=== PATIENT | female | born 1990 | race Caucasian/White ===

== ENCOUNTER 2018-06-17 10:27 | Inpatient (IN) | payer OTHER ==
[2018-06-17 11:05] VITALS: BMI 25.2
[2018-06-17] MEDS ORDERED: Bupivacaine 0.25% HCL 30 ML VIAL ONE (11:11)
[2018-06-17] MEDS ORDERED: Sodium Chloride 0.9% (PF) 10 ML VIAL ONE (11:11)
[2018-06-17 11:42] LABS: Amnisure Internal Control QC ACCEPTABLE (ACCEPTABLE); Amnisure Test RUPTURE DETECTED (No Rupture)
[2018-06-17] MEDS: Lactated Ringer's 1,000 ML IV SCH ×2 (12:02→16:22)
[2018-06-17] MEDS ORDERED: NS / Oxytocin 40 units/1000ml 1,000 ML IV PRN (12:18)
[2018-06-17] MEDS ORDERED: Lidocaine 1% (PF) 30 ML VIAL SC PRN (12:18)
[2018-06-17] MEDS ORDERED: Ondansetron PF 4 MG/2 ML Vial IVP PRN ×3 (12:18→22:58)
[2018-06-17] MEDS ORDERED: Ibuprofen 800 MG TAB PO PRN (12:18)
[2018-06-17] MEDS ORDERED: Fentanyl 4 mcg/Bup 0.1% Cadd 100 ML ONE (12:22)
[2018-06-17] MEDS ORDERED: Lactated Ringer's 1,000 ML IV SCH (12:30)
[2018-06-17] MEDS ORDERED: NS w/ Oxytocin 10 units 500 ML IV SCH (12:30)
[2018-06-17 12:46] LABS: Hemoglobin 10.3 g/dL (12.0-16.0); Mean Corpuscular HGB CONC 34.2 g/dL (32.0-36.0); Mean Corpuscular Hemoglobin 28.2 pg (27.0-31.0); Mean Corpuscular Volume 82.4 fL (78.0-98.0); Mean Platelet Volume 6.9 fL (7.4-10.4); Platelet Count 341 thou/uL (130-400); RBC Distribution Width 11.9 % (11.5-14.5); Red Blood Cell (RBC) Count 3.65 mill/uL (4.20-5.40); White Blood Cell (WBC) Count 8.1 thou/uL (4.8-10.8)
[2018-06-17 13:24] LABS: Syphilis Antibody Nonreactive (Nonreactive); Syphilis Antibody Index 0.15 S/CO (<1.00 Non-Reactive)
[2018-06-17 13:27] LABS: HBSAg Index 0.23 S/CO (0-0.99); Hep B Surf Ag Non-Reactive S/CO (NonReactive)
[2018-06-17] MEDS ORDERED: Acetaminophen 325 MG TAB PO PRN (14:54)
[2018-06-17] MEDS ORDERED: Promethazine HCl 25 MG/ML VIAL IM PRN ×2 (14:54→22:58)
[2018-06-17] MEDS ORDERED: Eucerin (Mineral Oil/Petrolatum,White) 30 gm Jar TOP PRN (14:54)
[2018-06-17] MEDS ORDERED: ePHEDrine/0.9% NaCl/PF SYRINGE 50 mg/10 ml SLOW IVP PRN (14:54)
[2018-06-17] MEDS ORDERED: Naloxone HCl 0.4 mg/ml Vial IVP PRN ×2 (14:54)
[2018-06-17] MEDS ORDERED: Lactated Ringer's 500 ML IV PRN (14:54)
[2018-06-17] MEDS ORDERED: diphenhydrAMINE 50 MG/ML VIAL IVP PRN (14:54)
[2018-06-17] MEDS ORDERED: Fentanyl 4 mcg/Bupivacaine 0.1% Cassette 100 ML EPIDURAL SCH (15:00)
[2018-06-17] MEDS ORDERED: Communication Order-Pharmacy FS SCH (15:00)
--- NOTE | 2018-06-17 20:52 | PDOC.LDHP ---
Labor and Delivery H&P HPI: 27 year old with MFM followed for hx of thrombotic stroke prior to , on ASA 81 mg until earlier this weel. BARNEY nopted to be elevated by MFM team, up to 33cm+ this week in office. Current gestational age (weeks): 38 (38w and 6d) Grav: 2 Para: 1 Current complications: other (Severe Polyhydramniose) Abnormal US findings: Yes Current medications: pre- vitamins Allergies/Adverse Reactions: Allergies Allergy/AdvReac Type Severity Reaction Status Date / Time sulfamethoxazole Allergy Verified 06/17/18 11:00 [From Bactrim] tramadol Allergy Verified 06/17/18 11:00 trimethoprim [From Bactrim] Allergy Verified 06/17/18 11:00 Social history: none - Physical Exam Vital signs reviewed and normal: yes General: NAD, resting, breathing through contractions Heart: RRR Lungs: CTAB Abdomen: NTTP Extremeties: no edema FHT: category 1 - Vaginal Exam cm dilated: 7 Effacement: 75% Station: -1 - Assessment L&D Assessment: term rupture in membranes - Plan Plan: admit to L&D, labor augmentation if indicated
[2018-06-17] MEDS ORDERED: Benzocaine/Menthol 20-0.5% 60 ML CAN TOP PRN (22:58)
[2018-06-17] MEDS ORDERED: Lanolin Ointment 7 GM TUBE TOP PRN (22:58)
[2018-06-17] MEDS ORDERED: Bisacodyl 10 MG SUPP PR PRN (22:58)
[2018-06-17] MEDS ORDERED: NS / Oxytocin 40 units/1000ml 1,000 ML IV SCH (22:58)
[2018-06-17] MEDS ORDERED: HYDROcodone/Acetaminophen 5/325 mg Tablet PO PRN ×2 (22:58)
[2018-06-17] MEDS ORDERED: Measles/Mumps/Rubella 10 MCG/0.5 ML VIAL SC ONE (22:58)
[2018-06-17] MEDS ORDERED: Milk Of Magnesia 30 ML UDCUP PO PRN (22:58)
[2018-06-17] MEDS ORDERED: Varicella virus, LIVE 0.5 ML VIAL SC ONE (22:58)
[2018-06-17] MEDS ORDERED: Misoprostol 200 MCG TAB VAG PRN (22:58)
[2018-06-17] MEDS ORDERED: diphenhydrAMINE 25 MG CAP PO PRN (22:58)
[2018-06-17] MEDS ORDERED: Zolpidem Tartrate 5 MG TAB PO PRN (22:58)
[2018-06-17] MEDS ORDERED: Adacel (T-DAP) 0.5 ML VIAL IM ONE (22:58)
[2018-06-17] MEDS: Ibuprofen 800 MG TAB PO SCH (23:31)
[2018-06-18] MEDS: Ibuprofen 800 MG TAB PO SCH ×3 (06:23→21:34)
[2018-06-18 07:08] LABS: Hemoglobin 10.6 g/dL (12.0-16.0); Mean Corpuscular HGB CONC 33.9 g/dL (32.0-36.0); Mean Corpuscular Hemoglobin 28.5 pg (27.0-31.0); Mean Corpuscular Volume 84.1 fL (78.0-98.0); Platelet Count 284 thou/uL (130-400); RBC Distribution Width 11.7 % (11.5-14.5); Red Blood Cell (RBC) Count 3.71 mill/uL (4.20-5.40); White Blood Cell (WBC) Count 11.2 thou/uL (4.8-10.8)
[2018-06-18] MEDS: Prenatal Vitamin 1 TAB PO SCH (09:04)
[2018-06-18] MEDS: Docusate Calcium (SURFAK) 240 MG CAP PO SCH ×2 (09:04→21:34)
[2018-06-18] MEDS: Ferrous Sulfate 325 MG TAB PO SCH ×2 (09:04→18:19)
--- NOTE | 2018-06-18 13:42 | PDOC.PP ---
Post Progress Note Post Day #: 1 PO intake tolerated: yes Flatus: yes Ambulation: yes Vital Signs (12 hours) Temp Pulse Resp BP Pulse Ox 06/18/18 09:00 98.3 F 71 18 111/63 96 06/18/18 08:00 96 06/18/18 03:00 97.8 F 66 18 119/71 Weight Weight 176 lb - Physical Examination General: NAD Cardiovascular: no m/r/g, RRR Respiratory: clear to auscultation bilaterally, non-labored breathing Abdominal: + bowel sounds, no distention Extremities: negative homans (B) Neurological: no gross focal deficits (DC to home today requested.) Psychiatric: A&Ox3, normal affect Result Diagrams: 06/18/18 06:20 Additional Labs: Post Labs Blood Type A POSITIVE 06/17/18 12:33 Hep Bs Antigen Non-Reactive S/CO (NonReactive) 06/17/18 12:33
--- NOTE | 2018-06-18 21:04 | DN ---
DATE OF PROCEDURE: 06/17/2018 PREOPERATIVE DIAGNOSES: Intrauterine at 38 weeks and 6 days with spontaneous rupture of membranes at term, polyhydramnios, and a personal history of thrombotic stroke. POSTOPERATIVE DIAGNOSES: Intrauterine at 38 weeks and 6 days with spontaneous rupture of membranes at term, polyhydramnios, and a personal history of thrombotic stroke. PROCEDURE PERFORMED: Spontaneous vaginal delivery over an intact perineum. FINDINGS: Viable male infant weighing 3820 g or 8 pounds and 7 ounces. Apgars of 6 and 8. QUANTITATIVE BLOOD LOSS: 42. COMPLICATIONS: None. PROCEDURE IN DETAIL: The patient presented to [facility] where she was admitted to the labor and delivery service. The patient underwent a normal and uneventful labor with normal cervical dilatation until she was found to be completely dilated. She was then allowed to push and was able to bring the baby down and delivered the baby in a vertex presentation without difficulties. Once the head delivered in occiput anterior position, the shoulders followed spontaneously along with the rest of the baby's body. Once out the baby's mouth and nose were bulb suctioned. The cord was clamped and cut and baby was handed to waiting attendants. Cord blood was collected. Gentle fundal massage was performed and the placenta delivered intact without problems. Hemostasis was assured. Quantitative blood loss was calculated. Inspection of the cervix, vaginal vault, and perineum did not reveal any lacerations needing suturing. Once again, hemostasis was within normal limits and the patient was allowed to recover in the labor and delivery room. Baby went to nursery. Job ID: [id number]
[2018-06-19] MEDS: Ibuprofen 800 MG TAB PO SCH (06:00)
[2018-06-19 09:01] VITALS: BP 131/74; TEMP 98
[2018-06-19] MEDS: Docusate Calcium (SURFAK) 240 MG CAP PO SCH (10:58)
[2018-06-19] MEDS: Prenatal Vitamin 1 TAB PO SCH (10:58)
[2018-06-19] MEDS: Ferrous Sulfate 325 MG TAB PO SCH (17:05)
== END 2018-06-19 15:25 | disposition home or self-care (01) | DRG 806 ==
LOC: L&D/OP 10:27 → L&D 13:48 → 3SW 23:00
PROVIDERS: ADMIT Obstetrics & Gynecology; ATTEND Obstetrics & Gynecology
PROC: 10E0XZZ Delivery of Products of Conception, External Approach (ICD-10-PCS; principal; 2018-06-17)
DX: O40.3XX0 Polyhydramnios, third trimester, not applicable or unspecified (principal); O99.413 Diseases of the circulatory system complicating pregnancy, third trimester; Z37.0 Single live birth; Z3A.38 38 weeks gestation of pregnancy; Z86.73 Personal history of transient ischemic attack (TIA), and cerebral infarction without residual deficits; Z79.82 Long term (current) use of aspirin
CPT/HCPCS: 36415; 51702; 84112; 85027; 86780; 86850; 86900; 86901; 87340; 99285; J2001; S0020

== ENCOUNTER 2019-09-25 13:28 | Emergency (ER) | payer OTHER ==
[2019-09-25 15:42] LABS: #Lymphocytes 1.2 thou/uL (1.20-3.40); #Monocytes 0.5 thou/uL (0.11-0.59); #Neutrophils 3.8 thou/uL (1.40-6.50); %Basophils 0.4 % (0.0-1.0); %Eosinophils 0.4 % (0.0-10.0); %Lymphocytes 20.8 % (21.0-51.0); %Monocytes 9.1 % (0.0-10.0); %Neutrophils 69.3 % (42.0-75.0); Mean Corpuscular HGB CONC 36.1 g/dL (32.0-36.0); Mean Corpuscular Hemoglobin 32.5 pg (27.0-31.0); Mean Corpuscular Volume 89.9 fL (78.0-98.0); Platelet Count 280 thou/uL (130-400); RBC Distribution Width 12.2 % (11.5-14.5); White Blood Cell (WBC) Count 5.5 thou/uL (4.8-10.8)
[2019-09-25 16:07] LABS: ALT (SGPT) 9 U/L (8-55); AST (SGOT) 12 U/L (5-34); Albumin 4.1 g/dL (3.5-5.0); Alkaline Phosphatase 36 U/L (40-110); Anion Gap 13 mmol/L (10-20); BUN (Urea Nitrogen) 8 mg/dL (7.0-18.7); Bilirubin, Total 0.7 mg/dL (0.2-1.2); Calc. Creatinine Clearance 0 mL/min (70-130); Calcium 9.2 mg/dL (7.8-10.44); Carbon Dioxide 25 mmol/L (22-29); Chloride 100 mmol/L (98-107); Estimated GFR-MDRD Greater than 90; Globulin 3.1 g/dL (2.4-3.5); Glucose 86 mg/dL (70-105); Lipase 16 U/L (8-78); Potassium 3.8 mmol/L (3.5-5.1); Protein, Total 7.2 g/dL (6.0-8.3); Sodium 134 mmol/L (136-145)
== END 2019-09-25 20:56 | disposition left against medical advice (07) ==
LOC: ERS 13:28
DX: Z53.21 Procedure and treatment not carried out due to patient leaving prior to being seen by health care provider (principal)
CPT/HCPCS: 36415; 80053; 83690; 85025

== ENCOUNTER 2019-12-12 18:35 | Day surgery (SDC) | payer OTHER ==
[2019-12-12] MEDS ORDERED: hydrALAZINE 20 MG/ML VIAL SLOW IVP PRN (19:06)
[2019-12-12] MEDS ORDERED: Cyclobenzaprine 10 MG TAB PO PRN (19:07)
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
[2019-12-12 19:12] VITALS: BP 119/68; TEMP 98.2; BMI 21.8
[2019-12-12] MEDS ORDERED: Acetaminophen 500 MG TAB PO SCH (19:30)
[2019-12-12] MEDS ORDERED: Lactated Ringer's 1,000 ML IV SCH (21:00)
== END 2019-12-12 23:30 | disposition home or self-care (01) ==
LOC: L&D/OP 18:35
PROVIDERS: ATTEND Obstetrics & Gynecology
DX: O99.89 Other specified diseases and conditions complicating pregnancy, childbirth and the puerperium (principal); M54.89 Other dorsalgia; M25.519 Pain in unspecified shoulder; Z88.2 Allergy status to sulfonamides; Z88.5 Allergy status to narcotic agent; V89.2XXA Person injured in unspecified motor-vehicle accident, traffic, initial encounter
CPT/HCPCS: 96360; 96361; 99283

== ENCOUNTER 2020-02-16 21:45 | Day surgery (SDC) | payer OTHER ==
[2020-02-16] MEDS ORDERED: hydrALAZINE 20 MG/ML VIAL SLOW IVP PRN (22:42)
[2020-02-16 23:15] LABS: Bacteria/HPF None Seen HPF (None Seen); Bilirubin Negative (Negative); Blood, Urine Negative (Negative); Clarity Clear (Clear); Glucose, Urine (Dipstick) Normal (Negative); Ketone, Urine Trace mg/dL (Negative); Leukocyte Negative Leu/uL (Negative); Nitrite Negative (Negative); Protein, Urine (Dipstick) Negative (Neg-Trace); RBC/HPF 0-3 HPF (0-3); Specific Gravity, Urine 1.013 (1.002-1.036); Squamous Epithelial 0-3 HPF (0-3); Urobilinogen Normal mg/dL (Less than 2); WBC/HPF 0-3 HPF (0-3)
[2020-02-16 23:17] LABS: Urine Culture Reflex No No
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
== END 2020-02-16 23:57 | disposition home or self-care (01) ==
LOC: L&D/OP 21:45
PROVIDERS: ATTEND Obstetrics & Gynecology
DX: O99.89 Other specified diseases and conditions complicating pregnancy, childbirth and the puerperium (principal); M54.9 Dorsalgia, unspecified; R10.30 Lower abdominal pain, unspecified; Z3A.37 37 weeks gestation of pregnancy; Z86.73 Personal history of transient ischemic attack (TIA), and cerebral infarction without residual deficits; Z88.1 Allergy status to other antibiotic agents; Z88.2 Allergy status to sulfonamides; Z88.5 Allergy status to narcotic agent
CPT/HCPCS: 81001

== ENCOUNTER 2020-02-19 02:17 | Day surgery (SDC) | payer OTHER ==
[2020-02-19 02:53] VITALS: BP 124/88; TEMP 97.8; BMI 24.8
--- NOTE | 2020-02-19 09:02 | SS ---
DATE OF ADMISSION: 02/19/2020 DATE OF DISCHARGE: 02/19/2020 REGULAR PHYSICIAN: Raji Gordon MD EVALUATING PHYSICIAN: Primo Portillo MD CHIEF COMPLAINT: Contractions at home. HISTORY OF PRESENT ILLNESS: Ms. Newell is a 29-year-old white G3, P2, estimated date of confinement 03/05/2020, who presents complaining of uterine contractions at home since 11:00. She states her contractions are every 5 minutes or so. She denies ruptured membranes or vaginal bleeding. Her care has been with Dr. Gordon without reported complications. PAST OBSTETRICAL HISTORY: Includes 2 vaginal deliveries at term. She states that one of her children is . PAST MEDICAL HISTORY: None. PAST SURGICAL HISTORY: None. CURRENT MEDICATIONS: vitamins. ALLERGIES: BACTRIM AND TRAMADOL, BOTH OF WHICH GIVE HER HIVES. SOCIAL HISTORY: Denies tobacco, alcohol, or drug use. FAMILY HISTORY: Unremarkable. REVIEW OF SYSTEMS: Denies nausea, vomiting, fever, chills, ruptured membranes, vaginal bleeding. PHYSICAL EXAMINATION: VITAL SIGNS: Blood pressure is 128/88, pulse 83. She is afebrile. GENERAL: She is pleasant. She is in no acute distress. ABDOMEN: Soft, nontender, and gravid. PELVIC: Examination by the labor nurse, is 1 cm dilated, 60% effaced with the vertex at the -2. heart rate tracing shows good [id number] variability with no decelerations. Irregular uterine contractions are seen. ASSESSMENT: 1. A 38-week intrauterine . 2. Prodromal labor, no active labor at this time. PLAN: The patient will be dismissed to home. Labor precautions were reviewed with her in detail. She voices understanding of this and is agreeable to going home for a while. Job ID: [id number]
== END 2020-02-19 03:33 | disposition home or self-care (01) ==
LOC: L&D/OP 02:17
PROVIDERS: ATTEND Obstetrics & Gynecology
DX: O47.1 False labor at or after 37 completed weeks of gestation (principal); Z3A.38 38 weeks gestation of pregnancy; Z88.1 Allergy status to other antibiotic agents; Z88.2 Allergy status to sulfonamides; Z88.5 Allergy status to narcotic agent
CPT/HCPCS: 99282

== ENCOUNTER 2021-07-26 21:46 | Emergency (ER) | payer OTHER | END 2021-07-26 23:39 | disposition home or self-care (01) | LOC: ERS 21:46 | DX: S90.31XA Contusion of right foot, initial encounter (principal) ==